=== PATIENT | male | born 1970 | race African-American/Black ===

== ENCOUNTER 2022-05-20 15:43 | Emergency (ER) | payer MEDICAID ==
[~2022-05-20] VITALS: Ht 177.8 cm; Wt 109.1 kg
[2022-05-20] MEDS ORDERED: METF-1211 PO (15:50)
[2022-05-20] MEDS ORDERED: LISI-892 PO (15:50)
[2022-05-20] MEDS ORDERED: KETOROLAC TROMETHAMINE 30 MG/ML VIAL IM ONE (16:30)
[2022-05-20] MEDS ORDERED: CLINDAMYCIN HCL 150 MG CAPSULE PO ONE (16:30)
[2022-05-20] MEDS ORDERED: CLIN-142 PO (16:55)
[2022-05-20 17:09] VITALS: BP 135/82
== END 2022-05-20 17:10 | disposition home or self-care (01) ==
LOC: EMS 15:43
DX: K08.89 Other specified disorders of teeth and supporting structures (principal); K02.9 Dental caries, unspecified; I10 Essential (primary) hypertension; E11.9 Type 2 diabetes mellitus without complications; F17.210 Nicotine dependence, cigarettes, uncomplicated; Z79.84 Long term (current) use of oral hypoglycemic drugs; Z79.899 Other long term (current) drug therapy
CPT/HCPCS: 99283; 82962; 96372; J1885